=== PATIENT | female | born 1985 | race Two or more races ===

== ENCOUNTER 2018-04-20 09:57 | Emergency (ER) | payer MEDICAID ==
[~2018-04-20] VITALS: Ht 152.4 cm; Wt 69.0 kg
[~2018-04-20 09:57] MED LIST: DOCU-131 PO; IBUP-1222 PO
[2018-04-20 10:08] VITALS: BP 136/67
[2018-04-20 10:59] LABS: RAPID INFLUENZA A Negative (Negative); RAPID INFLUENZA B Negative (Negative)
== END 2018-04-20 13:03 | disposition home or self-care (01) ==
LOC: ED 10:32
DX: O26.891 Other specified pregnancy related conditions, first trimester (principal); H66.003 Acute suppurative otitis media without spontaneous rupture of ear drum, bilateral; J00 Acute nasopharyngitis [common cold]; Z3A.10 10 weeks gestation of pregnancy
CPT/HCPCS: 76801; 87400; 99284

== ENCOUNTER 2018-08-07 02:03 | Emergency (ER) | payer MEDICAID ==
[~2018-08-07] VITALS: Ht 157.5 cm; Wt 73.3 kg
--- NOTE | 2018-08-07 02:47 | NUR ---
SHERRY JOHNSON AT BS.
[2018-08-07 03:22] LABS: RAPID INFLUENZA A POSITIVE (Negative); RAPID INFLUENZA B Negative (Negative)
[2018-08-07] MEDS ORDERED: ACETAMINOPHEN 500 MG TABLET PO ONE (04:00)
[2018-08-07] MEDS ORDERED: SODIUM CHLORIDE 0.9% 1,000ML IVBOLUS ONE (04:00)
[2018-08-07] MEDS ORDERED: SODIUM CHLORIDE FLUSH 10ML SYR IVF ONE (04:00)
[2018-08-07] MEDS ORDERED: ACETAMINOPHEN 500 MG TABLET ONE (04:13)
--- NOTE | 2018-08-07 04:13 | NUR ---
PT MEDICATED PER MAR.
[2018-08-07] MEDS ORDERED: OSELTAMIVIR 75 MG CAPSULE ONE (04:54)
[2018-08-07] MEDS ORDERED: OSELTAMIVIR 75 MG CAPSULE PO ONE (05:00)
[2018-08-07 05:40] VITALS: BP 91/51
--- NOTE | 2018-08-07 05:41 | NUR ---
PT FLUIDS FINISHED. PT BEING D/C WITH D/C SUMMARY AND SCRIPTS. ALL QUESTIONS ANSWERED. PT AMBULATES TO REGISTRATION DESK WITH STEADY GAIT FOR D/C HOME. PT DENIES ANY OTHER NEEDS PERTAINING TO THIS VISIT. PT VSS UPON D/C
== END 2018-08-07 05:43 | disposition home or self-care (01) ==
LOC: ED 03:16
DX: J10.1 Influenza due to other identified influenza virus with other respiratory manifestations (principal); R50.81 Fever presenting with conditions classified elsewhere; J40 Bronchitis, not specified as acute or chronic
CPT/HCPCS: 71046; 87081; 87400; 87880; 93005; 99284; J7030